=== PATIENT | male | born 1985 | race Caucasian/White ===

== ENCOUNTER 2017-03-07 12:30 | Inpatient (IN) | payer OTHER ==
[~2017-03-07] VITALS: Ht 167.6 cm; Wt 83.0 kg
[2017-03-07] VITALS (14 sets, daily range): BP systolic 115–131; BP diastolic 55–86; PULSE 66–84; RESP 15–23; TEMP 98.3; Ht 167.6 cm; Wt 83.0 kg
[2017-03-07] MEDS ORDERED: ONDANSETRON 4 MG INJ IV STA (14:20)
[2017-03-07] MEDS ORDERED: morphine 4 MG/ML VIAL IV STA (14:20)
[2017-03-07] MEDS ORDERED: SOD CHLORIDE 0.9% 1,000 ML IV STA (14:20)
[2017-03-07 14:47] LABS: ADD SCAN DIFF NO
--- NOTE | 2017-03-07 14:49 | ERD ---
ER Documentation Chief Complaint Date/Time DATE: 03/07/17 TIME: 14:45 Chief Complaint RUQ ABDOMINAL PAIN SINCE TUESDAY WITH N/V YESTERDAY HPI This is an otherwise healthy 31-year-old male who presents the emergency department for complaints of right-sided abdominal pain 1 day. Patient notes 2 episodes of vomiting which occurred yesterday. He denies any fever or chills. He currently rates his pain at a sharp 7 out of 10 nonradiating pain which is worse with movement and alleviated by rest. Patient denies any abdominal trauma. He denies diarrhea, dysuria, discharge, hematuria, coffee- ground emesis, bloody stool or nausea currently. ROS All systems reviewed and are negative except as per history of present illness. Allergies Allergies: Coded Allergies: No Known Allergy (Unverified , 03/07/17) Physical Exam Vitals Vital Signs Date Time Temp Pulse Resp B/P Pulse Ox O2 Delivery O2 Flow Rate FiO2 03/07/17 12:39 98.4 68 16 102/59 99 Physical Exam Const: Well-developed, well-nourished, in no acute distress Head: Atraumatic Neck: Full range of motion..~ No meningismus. Resp: Clear to auscultation bilaterally Cardio: Regular rate and rhythm, no murmurs Abd: Soft, diffuse right-sided tenderness to palpation with increased tenderness along the lower right abdomen. non distended. Normal bowel sounds. No peritoneal signs Skin: No petechiae or rashes Back: No midline or flank tenderness Ext: No cyanosis, or edema Neur: Awake and alert Psych: Normal Mood and Affect Result Diagram: 03/07/17 1435 03/07/17 1435 Results 24 hrs Laboratory Tests Test 03/07/17 14:35 White Blood Count 11.010^3/ul Red Blood Count 4.9610^6/ul Hemoglobin 14.5g/dl Hematocrit 43.8% Mean Corpuscular Volume 88.3fl Mean Corpuscular Hemoglobin 29.2pg Mean Corpuscular Hemoglobin Concent 33.1g/dl Red Cell Distribution Width 13.0% Platelet Count 04748^3/UL Mean Platelet Volume 10.2fl Neutrophils % 64.7% Lymphocytes % 22.9% Monocytes % 10.6% Eosinophils % 1.2% Basophils % 0.3% Nucleated Red Blood Cells % 0.0/100WBC Neutrophils # 7.110^3/ul Lymphocytes # 2.510^3/ul Monocytes # 1.210^3/ul Eosinophils # 0.110^3/ul Basophils # 0.010^3/ul Nucleated Red Blood Cells # 0.010^3/ul Urine Color YELLOW Urine Clarity CLEAR Urine pH 7.0 Urine Specific Lucas 1.014 Urine Ketones NEGATIVEmg/dL Urine Nitrite NEGATIVEmg/dL Urine Bilirubin NEGATIVEmg/dL Urine Urobilinogen NEGATIVEmg/dL Urine Leukocyte Esterase NEGATIVELeu/ul Urine Hemoglobin NEGATIVEmg/dL Urine Glucose NEGATIVEmg/dL Urine Total Protein NEGATIVEmg/dl Sodium Level 142mmol/L Potassium Level 4.1mmol/L Chloride Level 93mmol/L Carbon Dioxide Level 32mmol/L Anion Gap 21 Blood Urea Nitrogen 13mg/dl Creatinine 0.87mg/dl Glucose Level 88mg/dl Calcium Level 9.4mg/dl Total Bilirubin 0.5mg/dl Direct Bilirubin 0.00mg/dl Indirect Bilirubin 0.5mg/dl Aspartate Amino Transf (AST/SGOT) 20IU/L Alanine Aminotransferase (ALT/SGPT) 39IU/L Alkaline Phosphatase 62IU/L Total Protein 8.0g/dl Albumin 5.0g/dl Globulin 3.00g/dl Albumin/Globulin Ratio 1.66 Lipase 56U/L Current Medications Medications (Trade) Dose Ordered Sig/Jessy Route PRN Reason Start Time Stop Time Status Last Admin Dose Admin Sodium Chloride (NS) 1,000 ml @ 1,000 mls/hr Q1H STAT IV 03/07/17 14:20 03/07/17 15:19 DC 03/07/17 14:49 Morphine Sulfate (morphine) 4 mg ONCE STAT IV 03/07/17 14:20 03/07/17 14:22 DC 03/07/17 14:50 Ondansetron HCl (Zofran Inj) 4 mg ONCE STAT IV 03/07/17 14:20 03/07/17 14:22 DC 03/07/17 14:49 Procedures/MDM This is an otherwise healthy 31-year-old male who presents the emergency department for sudden onset right sided abdominal pain with associated vomiting 2 days. Patient well-appearing upon arrival. Vital signs reviewed. Patient afebrile, non-tachycardic, normotensive and non-hypoxic upon arrival. Abdominal exam with tenderness to palpation to the right lower quadrant. CBC showed no evidence of significantly elevated white blood cells, or severe anemia. CMP showed no evidence of electrolyte abnormalities, severe acidosis, alkalosis , renal failure, or liver disease. Lipase showed no evidence of acute pancreatitis. UA showed no evidence of acute infection or hematuria. Patient received a bolus of fluids as well as morphine and Zofran while in the emergency department. Differential diagnosis includes but not limited to acute appendicitis, testicular torsion, cholecystitis, small bowel obstruction, abdominal aortic aneurysm, mesenteric adenitis. Patient's case is transferred to Dr. Samuel Nobles pending CT scan Departure Diagnosis: Primary Impression: Abdominal pain YARELIS DOMINIQUE PA-C Mar 07, 2017 14:49
[2017-03-07 14:51] LABS: BASOPHILS % 0.3 % (0.0-2.0); EOSINOPHILS # 0.1 10^3/ul (0.0-0.5); EOSINOPHILS % 1.2 % (0.0-7.0); HEMATOCRIT 43.8 % (42.0-52.0); HEMOGLOBIN 14.5 g/dl (14.0-18.0); LYMPHOCYTES # 2.5 10^3/ul (0.8-2.9); LYMPHOCYTES % 22.9 % (15.0-51.0); MEAN CORPUSCULAR HEMOGLOBIN 29.2 pg (29.0-33.0); MEAN CORPUSCULAR HGB CONC 33.1 g/dl (32.0-37.0); MEAN CORPUSCULAR VOLUME 88.3 fl (82.0-101.0); MEAN PLATELET VOLUME 10.2 fl (7.4-10.4); MONOCYTE # 1.2 10^3/ul (0.3-0.9); MONOCYTES % 10.6 % (0.0-11.0); NEUTROPHIL # 7.1 10^3/ul (1.6-7.5); NEUTROPHILS % 64.7 % (39.0-77.0); PLATELET COUNT 264 10^3/UL (140-415); RED BLOOD COUNT 4.96 10^6/ul (4.70-6.10)
[2017-03-07 14:54] LABS: ADD UMIC NO; UR ASCORBIC ACID NEGATIVE (NEGATIVE); UR BILIRUBIN (Dip) NEGATIVE (NEGATIVE); UR BLOOD (Dip) NEGATIVE (NEGATIVE); UR CLARITY CLEAR (CLEAR); UR COLOR YELLOW (YELLOW); UR GLUCOSE (Dip) NEGATIVE (NEGATIVE); UR KETONES (Dip) NEGATIVE (NEGATIVE); UR LEUKOCYTE ESTERASE (Dip) NEGATIVE Leu/ul (NEGATIVE); UR NITRITE (Dip) NEGATIVE (NEGATIVE); UR SPECIFIC GRAVITY (Dip) 1.014 (1.003-1.030); UR TOTAL PROTEIN (Dip) NEGATIVE (NEGATIVE); UR UROBILINOGEN (Dip) NEGATIVE (NEGATIVE)
[2017-03-07 15:13] LABS: ALBUMIN/GLOBULIN RATIO 1.66; BILIRUBIN,INDIRECT 0.5 mg/dl (0-1.1); BILIRUBIN,TOTAL 0.5 mg/dl (0.2-1.3); CALCIUM 9.4 mg/dl (8.4-10.2); CREATININE 0.87 mg/dl (0.61-1.24); POTASSIUM 4.1 mmol/L (3.5-5.1)
--- NOTE | 2017-03-07 16:47 | RADRPT ---
PROCEDURE: CT Abdomen and Pelvis without contrast. CLINICAL INDICATION: Flank pain TECHNIQUE: CT scan of the abdomen and pelvis without contrast was performed on a multi-slice CT [facility] without intravenous contrast. Coronal and sagittal reformatted images were obtained from the axial source images. Images were reviewed on a high-resolution PACS workstation. One or more of the following does reduction techniques were used: Automated exposure control; adjustment of the mA an d/or kV according to patient size; use of the aorta of reconstruction technique. The total exam CTD I equals 12.07 mGy and the total exam DLP equals 789.96 mGy-cm. COMPARISON: None available. FINDINGS: There is mild bilateral posterior lower lobe subsegmental atelectasis.. Heart size is normal, and t here is no evidence of pericardial thickening or effusion. There is diffuse decreased attenuation of the hepatic parenchyma consistent with fatty infiltration. The liver is mildly enlarged. The liver, spleen, and pancreas are otherwise within normal limits. The gallbladder is normal. The adrenal glands are normal. The kidneys without renal calculus or hydronephrosis. The aorta is of normal caliber. There is no retroperitoneal lymph node enlargment. There is no evidence of large or small bowel obstruction. The appendix is moderate to markedly thic kened, there are moderate to marked periappendiceal inflammatory changes. There is small amounts of free fluid adjacent to the appendix. Which track into the pelvis. There is likely a small 2.3 x 1 .0 cm fluid collection just medial to the appendix likely representing a small abscess, compatible w ith perforation.. No other areas of inflammatory change identified. No enlarged pelvic sidewall lymph nodes are seen. The bladder is within normal limits. No free fl uid is identified. The inguinal regions are unremarkable. The bones are intact. IMPRESSION: 1. Of acute appendicitis with small fluid collection just medial to the appendix likely representin g tiny abscess compatible with perforation. 2. Enlarged, fatty liver. Call report: A call report was made to IJ Key at approximately 04:45 p.m. on 03/07/2017. RPTAT: [facility] .Vinay Booker MD, Date Time Electronically viewed and signed by .Vinay Booker MD, on 03/07/2017 16:46 .B/
[2017-03-07] MEDS ORDERED: PIPER-TAZO 3.375 GM IV (PMX) 100 ML IVPB ONE (17:00)
--- NOTE | 2017-03-07 17:33 | EN ---
Date/Time of Note Date/Time of Note DATE: 03/07/17 TIME: 17:30 ER Progress Note I have seen and evaluated the patient along with the PA and/or [employer] provider. I agree with the evaluation and plan of care. Please see their documentation for full ER course and evaluation. Initial presentation: Diffuse abdominal pain beginning Tuesday night which migrated to the right lower quadrant on Tuesday associated with one episode of vomiting and anorexia, right lower quadrant abdominal pain persisted till this morning which is when he came in for evaluation. On exam: Vital signs hemodynamically stable Focal tenderness the right upper quadrant with a positive Johnson sign with voluntary guarding. Assessment and plan: CT scan of the abdomen and pelvis revealing perforated appendicitis. Please refer to radiologist dictation for full report. Patient was treated here with morphine, Zofran, Zosyn. At this time he is pain- free. Accepting care team and consultations: I discussed the current laboratory data, diagnostic imaging and emergency care provided. Admitting team: Dr. Blanchard Admitting team indication: Insurance directed Consulting services: Dr. Pizano, general surgeon notified Diagnostic impression: Acute perforated appendicitis MARI CANDELARIA MD Mar 07, 2017 17:32
[2017-03-07] MEDS ORDERED: ACETAMINOPHEN 325 MG TAB PO PRN ×2 (18:00→21:00)
[2017-03-07] MEDS ORDERED: ONDANSETRON 4 MG INJ IV PRN ×3 (18:00→22:30)
[2017-03-07] MEDS ORDERED: HYDROCODONE/APAP (5/325) TAB PO PRN (18:00)
[2017-03-07] MEDS ORDERED: NACL 0.9% 3 ML SYG IV SCH (18:00)
--- NOTE | 2017-03-07 18:15 | HP ---
Date/Time of Note Date/Time of Note DATE: 03/07/17 TIME: 18:12 Assessment/Plan VTE Prophylaxis VTE Prophylaxis Intervention: SCD's Assessment/Plan Chief Complaint/Hosp Course 1. Abdominal pain. CT evidence of acute appendicitis with possible underlying perforation. We will keep the patient n.p.o. Will provide the patient with adequate pain control. Start the patient on empiric antibiotics. General surgery consult was already called by the ER physician. 2. Leukocytosis. Management as per #1. 3. Anion gap acidosis. Most probably secondary to #1. Continue IV hydration. Continue antibiotics. Plan: The patient will be admitted to inpatient medical surgical floor. The patient will be kept n.p.o.. The patient will be started on DVT prophylaxis and gastrointestinal prophylaxis. The patient will remain a full code. Activities will be as tolerated. The rest of the patient's management will be based on the clinical course and the results of diagnostic studies. Based on the patient's clinical presentation, he most probably requires at least 1 midnight's stay for further management and evaluation of his clinical presentation. The case and management of this patient was fully discussed with . Problems: HPI/ROS Admit Date/Time Admit Date/Time Hx of Present Illness Reason for admission: Abdominal pain. Lapel Padder Blindstitch 1. Christopher Pizano MD, General Surgery This is a 31-year-old male who denied any significant past medical history other than a history of prediabetes but not on any medication who came to the emergency room with chief complaint of right lower quadrant abdominal pain. The patient verbalized that he started having the pain since 03/05/2017. The pain was associated with a few episodes of nonbilious nonbloody vomiting. The patient denied any fevers or chills. The patient had poor appetite. He denied any diarrhea. The patient denied any radiation of the pain. He denied any dysuria. In the emergency room, the patient was noticed to have minimal leukocytosis. The patient was afebrile. The patient's a CT scan of the abdomen and pelvis showed evidence of appendicitis with possible underlying adjacent abscess compatible with perforation. The patient was treated with IV antibiotics and IV fluids in the emergency room. ROS Constitutional: no complaints Eyes: no complaints ENT: no complaints Respiratory: no complaints Cardiovascular: no complaints Gastrointestinal: nausea, pain, vomiting Genitourinary: no complaints Musculoskeletal: no complaints Skin: no complaints Neurologic: no complaints Endocrine: no complaints Lymphatic: no complaints Psychological: no complaints Immunologic: no complaints PMH/Family/Social Past Medical History Medical History: other (Prediabetes) Past Surgical History Past Surgical Hx: no surgical history Social History Works in construction. Alcohol Use: occasionally Smoking Status: Never smoker Drug Use: none Exam/Review of Systems Vital Signs Vitals Vital Signs Date Time Temp Pulse Resp B/P Pulse Ox O2 Delivery O2 Flow Rate FiO2 03/07/17 17:50 98.3 67 18 108/71 98 Room Air Exam Exam General: Adequately build 31 year-old male lying in bed in no apparent distress. HEENT: Normocephalic, atraumatic. Eyes: Anicteric sclerae, conjunctivae clear. ENT: Nasal septum midline, oral mucosa moist. Neck supple, no JVD noticed. Respiratory: Bilaterally clear breath sounds. No use of accessory muscles of respiration. No adventitious breath sounds. Cardiovascular: S1, S2 heard. No murmurs or gallops. Abdomen: Soft and nondistended. Bowel sounds positive in all 4 quadrants. Right lower quadrant tenderness and guarding. Genitourinary: Deferred. Extremities: No cyanosis, no clubbing, no edema. Peripheral pulses palpable. Neurologic: Cranial nerves II through XII grossly intact. The patient is awake, alert, and oriented. Skin: Normal skin turgor. No skin rashes. Labs Result Diagram: 03/07/17 1435 03/07/17 1435 Medications Medications Current Medications Ondansetron HCl (Zofran Inj) 4 mg Q6H PRN IV NAUSEA AND/OR VOMITING; Start 06/14 at 18:00 Acetaminophen (Tylenol Tab) 650 mg Q6H PRN PO PAIN LEVEL 1-3 OR FEVER; Start at 18:00 Acetaminophen/ Hydrocodone Bitart ([place] (5/325)) 1 tab Q6H PRN PO MODERATE PAIN LEVEL 4-6; Start 03/07/17 at 18:00 Famotidine 20 mg 20 mg Q12 IV ; Start 03/07/17 at 21:00 Potassium Chloride/Dextrose/ Sod Cl (D5-1/2ns + KCl 20 Meq) 1,000 ml @ 100 mls/ hr Q10H IV ; Start 03/07/17 at 18:30; Status UNV Procedures Procedures CT Scan of the Abdomen and Pelvis IMPRESSION: 1. Acute appendicitis with small fluid collection just medial to the appendix likely representing tiny abscess compatible with perforation. 2. Enlarged, fatty liver. COURTNEY PARHAM NP Mar 07, 2017 18:14
[2017-03-07] MEDS ORDERED: D5W-0.45 NACL + KCL 20 MEQ 1,000 ML IV SCH (18:30)
[2017-03-07] MEDS ORDERED: BUPIVACAINE 0.25%/EPI (SDV) 30 ML INJ ONE (20:41)
[2017-03-07] MEDS ORDERED: LIDOCAINE 1% (MPF) 30 ML INJ ONE (20:41)
[2017-03-07] MEDS ORDERED: LIDOCAINE 1% (MDV) 20 ML INJ ONE (20:55)
[2017-03-07] MEDS ORDERED: MIDAZOLAM 1 MG/ML 2 ML INJ ONE (20:55)
[2017-03-07] MEDS ORDERED: FENTAnyl 50 MCG/ML VIAL ONE (20:55)
[2017-03-07] MEDS ORDERED: IBUPROFEN 600 MG TAB PO PRN (21:00)
[2017-03-07] MEDS ORDERED: morphine 2 MG INJ IV PRN (21:00)
[2017-03-07] MEDS ORDERED: CEFAZOLIN 1 GM INJ ONE (21:05)
[2017-03-07] MEDS ORDERED: ONDANSETRON 4 MG INJ ONE (21:08)
[2017-03-07] MEDS ORDERED: DEXAMETHASONE 4 MG/ML 1 ML INJ ONE (21:08)
[2017-03-07] MEDS ORDERED: ROCURONIUM 50 MG INJ ONE (21:09)
[2017-03-07] MEDS ORDERED: ROPIVACAINE 0.2% 20 ML VIAL ONE (21:31)
[2017-03-07] MEDS ORDERED: SUGAMMADEX SODIUM 200 MG/2 ML VIAL IV ONE (21:48)
[2017-03-07] MEDS ORDERED: PIPER-TAZO 3.375 GM IV (PMX) 100 ML IVPB SCH (22:00)
[2017-03-07] MEDS ORDERED: DIPHENHYDRAMINE 50 MG INJ IV PRN (22:30)
[2017-03-07] MEDS ORDERED: HYDROmorphONE (0.2 MG/ML) 10ML SYG IV PRN ×2 (22:30)
[2017-03-07] MEDS ORDERED: MEPERIDINE 25 MG INJ IV PRN (22:30)
[2017-03-07] MEDS: PIPER-TAZO 3.375 GM IV (PMX) 100 ML IVPB SCH (23:22)
[2017-03-07] MEDS: FAMOTIDINE 20 MG INJ IV SCH (23:22)
[2017-03-07] MEDS: D5-NS + KCL 20 MEQ 1,000 ML IV SCH (23:22)
[2017-03-07] MEDS: OXYCODONE/ACETAMINOPHEN (5/325) TAB PO PRN (23:23)
[2017-03-08] VITALS: BP 111/57; PULSE 67; RESP 18
[2017-03-08 00:30] VITALS: BP 123/68; RESP 19
[2017-03-08 01:30] VITALS: BP 126/69; PULSE 69; RESP 18
[2017-03-08 05:16] LABS: ADD SCAN DIFF NO
[2017-03-08 05:20] LABS: BASOPHILS % 0.1 % (0.0-2.0); HEMATOCRIT 42.4 % (42.0-52.0); HEMOGLOBIN 13.9 g/dl (14.0-18.0); LYMPHOCYTES # 0.7 10^3/ul (0.8-2.9); LYMPHOCYTES % 5.5 % (15.0-51.0); MEAN CORPUSCULAR HGB CONC 32.8 g/dl (32.0-37.0); MEAN CORPUSCULAR VOLUME 88.5 fl (82.0-101.0); MEAN PLATELET VOLUME 10.3 fl (7.4-10.4); MONOCYTE # 0.6 10^3/ul (0.3-0.9); NEUTROPHIL # 10.6 10^3/ul (1.6-7.5); NEUTROPHILS % 88.8 % (39.0-77.0); PLATELET COUNT 231 10^3/UL (140-415); RED BLOOD COUNT 4.79 10^6/ul (4.70-6.10); RED CELL DISTRIBUTION WIDTH 12.8 % (11.5-14.5); WHITE BLOOD COUNT 11.9 10^3/ul (4.8-10.8)
[2017-03-08] MEDS: PIPER-TAZO 3.375 GM IV (PMX) 100 ML IVPB SCH ×4 (05:24→23:24)
[2017-03-08] MEDS: OXYCODONE/ACETAMINOPHEN (5/325) TAB PO PRN ×3 (05:24→15:56)
[2017-03-08 05:34] LABS: ALBUMIN 4.8 g/dl (3.3-4.9); ALBUMIN/GLOBULIN RATIO 1.84; BILIRUBIN,INDIRECT 0.3 mg/dl (0-1.1); BILIRUBIN,TOTAL 0.3 mg/dl (0.2-1.3); CALCIUM 9.2 mg/dl (8.4-10.2); CREATININE 0.91 mg/dl (0.61-1.24); POTASSIUM 4.8 mmol/L (3.5-5.1); TOTAL PROTEIN 7.4 g/dl (6.1-8.1)
[2017-03-08 05:35] VITALS: BP 110/65; PULSE 70; RESP 18
[2017-03-08 05:38] LABS: CHOL/HDL RATIO 3.1 RATIO; MAGNESIUM 1.9 mg/dl (1.7-2.5); PHOSPHORUS 4.2 mg/dl (2.5-4.9)
[2017-03-08 06:08] LABS: THYROID STIMULATING HORMONE 0.251 MIU/L (0.465-4.680)
[2017-03-08] MEDS: ENOXAPARIN 40 MG/0.4 ML SYG SC SCH (06:17)
[2017-03-08] MEDS: D5-NS + KCL 20 MEQ 1,000 ML IV SCH ×2 (06:40→16:43)
[2017-03-08 08:00] VITALS: BP 103/61; RESP 18
[2017-03-08] MEDS: FAMOTIDINE 20 MG INJ IV SCH ×2 (08:15→20:49)
--- NOTE | 2017-03-08 17:26 | PN ---
Date/Time of Note Date/Time of Note DATE: 03/08/17 TIME: 17:22 Assessment/Plan Lines/Catheters IV Catheter Type (from Nrsg): Peripheral IV Assessment/Plan Assessment/Plan Status post lap appendectomy Doing well postoperatively Okay for discharge tomorrow Subjective 24 Hr Interval Summary Postop day 1 from laparoscopic Patient has some left lower quadrant pain Tolerating liquids and voiding Exam/Review of Systems Vital Signs Vitals Vital Signs Date Time Temp Pulse Resp B/P Pulse Ox O2 Delivery O2 Flow Rate FiO2 03/08/17 08:00 98.0 63 18 103/61 97 03/08/17 05:35 Room Air 03/08/17 01:30 2.0 Intake and Output 03/07/17 03/07/17 03/08/17 15:00 23:00 07:00 Intake Total 800 ml 1100 ml Output Total 5 ml 500 ml Balance 795 ml 600 ml Exam Constitutional: alert, oriented, well developed Respiratory: clear to auscultation Gastrointestinal: soft Results Result Diagram: 03/08/17 0423 03/08/17 0423 LYRIC SERRANO MD Mar 08, 2017 17:25
--- NOTE | 2017-03-08 17:45 | PN ---
Date/Time of Note Date/Time of Note DATE: 03/08/17 TIME: 17:42 Assessment/Plan VTE Prophylaxis VTE Prophylaxis Intervention: LMWH Lines/Catheters IV Catheter Type (from Nrs): Peripheral IV Assessment/Plan Chief Complaint/Hosp Course 1. Acute appendicitis. Status post laparoscopic appendectomy. Continue pain control. Encourage incentive spirometry and frequent ambulation. 2. Leukocytosis. Management as per #1. 3. Anion gap acidosis. Most probably secondary to #1. Resolved. 4. Fluids, electrolytes, and nutrition. Regular diet as tolerated. 5. DVT prophylaxis. Subcutaneous Lovenox. 6. Gastrointestinal prophylaxis. Histamine 2 receptor blockers. 7. Plan. Continue pain control. Encourage incentive spirometry and frequent ambulation. Discharge the patient home once cleared by the surgeon. Case discussed with Dr. Blanchard. Problems: Subjective 24 Hr Interval Summary Free Text/Dictation Normal pain better controlled. Tolerating oral intake. Exam/Review of Systems Vital Signs Vitals Vital Signs Date Time Temp Pulse Resp B/P Pulse Ox O2 Delivery O2 Flow Rate FiO2 03/08/17 08:00 98.0 63 18 103/61 97 03/08/17 05:35 Room Air 03/08/17 01:30 2.0 Intake and Output 03/07/17 03/07/17 03/08/17 14:59 22:59 06:59 Intake Total 800 ml 1100 ml Output Total 5 ml 500 ml Balance 795 ml 600 ml Exam General: Adequately build 31 year-old male lying in bed in no apparent distress. HEENT: Normocephalic, atraumatic. Eyes: Anicteric sclerae, conjunctivae clear. ENT: Nasal septum midline, oral mucosa moist. Neck supple, no JVD noticed. Respiratory: Bilaterally clear breath sounds. No use of accessory muscles of respiration. No adventitious breath sounds. Cardiovascular: S1, S2 heard. No murmurs or gallops. Abdomen: Soft and nondistended. Bowel sounds positive in all 4 quadrants. Laparoscopic incision sites clean dry and intact with some mery-incisional tenderness. Genitourinary: Deferred. Extremities: No cyanosis, no clubbing, no edema. Peripheral pulses palpable. Neurologic: Cranial nerves II through XII grossly intact. The patient is awake, alert, and oriented. Skin: Normal skin turgor. No skin rashes. Results Result Diagram: 03/08/1742203/08/17422 Results 24 hrs Laboratory Tests Test 03/08/17 04:23 White Blood Count 11.9 H Red Blood Count 4.79 Hemoglobin 13.9 L Hematocrit 42.4 Mean Corpuscular Volume 88.5 Mean Corpuscular Hemoglobin 29.0 Mean Corpuscular Hemoglobin Concent 32.8 Red Cell Distribution Width 12.8 Platelet Count 231 Mean Platelet Volume 10.3 Neutrophils % 88.8 H Lymphocytes % 5.5 L Monocytes % 5.0 Eosinophils % 0.0 Basophils % 0.1 Nucleated Red Blood Cells % 0.0 Neutrophils # 10.6 H Lymphocytes # 0.7 L Monocytes # 0.6 Eosinophils # 0.0 Basophils # 0.0 Nucleated Red Blood Cells # 0.0 Sodium Level 138 Potassium Level 4.8 Chloride Level 99 Carbon Dioxide Level 28 Anion Gap 16 Blood Urea Nitrogen 10 Creatinine 0.91 Glucose Level 151 Hemoglobin A1c 5.6 Calcium Level 9.2 Phosphorus Level 4.2 Magnesium Level 1.9 Total Bilirubin 0.3 Direct Bilirubin 0.00 Indirect Bilirubin 0.3 Aspartate Amino Transf (AST/SGOT) 18 Alanine Aminotransferase (ALT/SGPT) 31 Alkaline Phosphatase 53 Total Protein 7.4 Albumin 4.8 Globulin 2.60 Albumin/Globulin Ratio 1.84 Triglycerides Level 44 Cholesterol Level 162 LDL Cholesterol, Calculated 101 HDL Cholesterol 52 Cholesterol/HDL Ratio 3.1 Thyroid Stimulating Hormone (TSH) 0.251 L Free Thyroxine 1.01 Medications Medications Current Medications Acetaminophen (Tylenol Tab) 650 mg Q6H PRN PO PAIN LEVEL 1-3 OR FEVER; Start at 18:00 Acetaminophen/ Hydrocodone Bitart ([place] (5/325)) 1 tab Q6H PRN PO MODERATE PAIN LEVEL 4-6; Start 03/07/17 at 18:00 Famotidine 20 mg 20 mg Q12 IV Last administered on 03/08/17 08:15; Admin Dose 20 MG; Start 03/07/17 at 21:00 Piperacillin Sod/ Tazobactam Sod (Zosyn 3.375gm/ 100 ml (Pmx)) 100 ml @ 200 mls /hr Q6 IVPB Last administered on 03/08/17 17:03; Admin Dose 200 MLS/HR; Start 03/08/17 at 00:00 Ondansetron HCl (Zofran Inj) 4 mg Q6H PRN IV NAUSEA AND/OR VOMITING; Start 06/14 at 21:00 Acetaminophen (Tylenol Tab) 650 mg Q6H PRN PO PAIN LEVEL 1-3 OR FEVER; Start at 21:00 Ibuprofen (Motrin) 600 mg Q6H PRN PO PAIN LEVEL 1-3; Start 03/07/17 at 21:00 Morphine Sulfate (morphine) 2 mg Q2H PRN IV PAIN LEVEL 8-10; Start 03/07/17 at 21:00 Oxycodone/ Acetaminophen 1 tab 1 tab Q6H PRN PO PAIN LEVEL 4-7 Last administered on 03/08/17 15:56; Admin Dose 1 TAB; Start 03/07/17 at 21:00 Potassium Chloride/Dextrose/ Sod Cl (D5-NS + KCl 20 Meq) 1,000 ml @ 100 mls/hr Q10H IV Last administered on 03/07/17 23:22; Admin Dose 100 MLS/HR; Start 06/14 at 21:00 Enoxaparin Sodium (Lovenox) 40 mg DAILY@07 SC Last administered on 03/08/17 06 :17; Admin Dose 40 MG; Start 03/08/17 at 07:00 COURTNEY PARHAM NP Mar 08, 2017 17:44 Morphine Sulfate (morphine) 2 mg Q2H PRN IV PAIN LEVEL 8-10; Start 03/07/17 at 21:00 Oxycodone/ Acetaminophen 1 tab 1 tab Q6H PRN PO PAIN LEVEL 4-7 Last administered on 03/08/17 15:56; Admin Dose 1 TAB; Start 03/07/17 at 21:00 Potassium Chloride/Dextrose/ Sod Cl (D5-NS + KCl 20 Meq) 1,000 ml @ 100 mls/hr Q10H IV Last administered on 03/07/17 23:22; Admin Dose 100 MLS/HR; Start 06/14 at 21:00 Enoxaparin Sodium (Lovenox) 40 mg DAILY@07 SC Last administered on 03/08/17 06 :17; Admin Dose 40 MG; Start 03/08/17 at 07:00 COURTNEY PARHAM NP Mar 08, 2017 17:44
[2017-03-08 20:02] VITALS: BP 100/54; PULSE 72; RESP 18
[2017-03-09] MEDS: D5-NS + KCL 20 MEQ 1,000 ML IV SCH ×2 (03:00→08:41)
[2017-03-09 05:20] LABS: ADD SCAN DIFF NO
[2017-03-09 05:24] LABS: BASOPHILS % 0.2 % (0.0-2.0); EOSINOPHILS # 0.1 10^3/ul (0.0-0.5); EOSINOPHILS % 0.9 % (0.0-7.0); HEMATOCRIT 39.3 % (42.0-52.0); HEMOGLOBIN 12.8 g/dl (14.0-18.0); LYMPHOCYTES # 2.4 10^3/ul (0.8-2.9); LYMPHOCYTES % 26.6 % (15.0-51.0); MEAN CORPUSCULAR HEMOGLOBIN 29.2 pg (29.0-33.0); MEAN CORPUSCULAR HGB CONC 32.6 g/dl (32.0-37.0); MEAN CORPUSCULAR VOLUME 89.5 fl (82.0-101.0); MEAN PLATELET VOLUME 10.3 fl (7.4-10.4); MONOCYTE # 1.1 10^3/ul (0.3-0.9); MONOCYTES % 11.9 % (0.0-11.0); NEUTROPHIL # 5.5 10^3/ul (1.6-7.5); PLATELET COUNT 243 10^3/UL (140-415); RED BLOOD COUNT 4.39 10^6/ul (4.70-6.10); RED CELL DISTRIBUTION WIDTH 12.6 % (11.5-14.5); WHITE BLOOD COUNT 9.1 10^3/ul (4.8-10.8)
[2017-03-09 05:45] LABS: PHOSPHORUS 3.7 mg/dl (2.5-4.9)
[2017-03-09 05:51] LABS: CREATININE 1.16 mg/dl (0.61-1.24)
[2017-03-09] MEDS: PIPER-TAZO 3.375 GM IV (PMX) 100 ML IVPB SCH (06:16)
[2017-03-09] MEDS: ENOXAPARIN 40 MG/0.4 ML SYG SC SCH (06:20)
[2017-03-09 07:29] VITALS: BP 99/59; RESP 20
--- NOTE | 2017-03-09 09:45 | PDOCDIS ---
Discharge Instructions DIAGNOSIS Discharge Diagnosis Acute appendicitis. Status post lap appendectomy. CONDITION Patient Condition: Stable HOME CARE INSTRUCTIONS: Diet Instructions: Regular FOLLOW UP/APPOINTMENTS Follow-up Plan Christopher Pizano MD Specialty: General Surgery Office Address [address] [place] [address] Office OTHER ORDERS: Other Orders: 1. Regular diet as tolerated. 2. Keep incisions clean and dry. May shower. Avoid tub baths and swimming for 2 weeks. Use mild soap and pat dry the incisions. 3. Take medications as needed for pain. 4. Call the surgeon or go to the nearest ER if you have severe abdominal pain despite pain medications. 5. Call the surgeon or go to the nearest ER if you notice any bleeding or secretions coming out of the incision sites. Also call the surgeon if you notice any blood in stool, if you have persistent fevers, or any other unusual signs or symptoms. 6. Follow-up with the surgeon Dr. Pizano in 7 days for incision check. 7. Avoid heavy lifting [more than 25 pounds] for 8 weeks. SCHOOL/WORK RELEASE May return to School/Work on: Mar 13, 2017 May return to School/Work with: With Restrictions (No weight bearing >25 lbs for 8 weeks.) COURTNEY PARHAM NP Mar 09, 2017 09:45
[2017-03-09] MEDS ORDERED: DOCU-144 PO (09:46)
[2017-03-09] MEDS ORDERED: CEPH500C PO (09:46)
[2017-03-09] MEDS ORDERED: HYDR-3498 PO (09:46)
--- NOTE | 2017-03-09 10:13 | DS ---
Date/Time of Note Date/Time of Note DATE: 03/09/17 TIME: 10:10 Discharge Summary Admission/Discharge Info Admit Date/Time Mar 08, 2017 at 09:38 Discharge Date/Time Discharge Diagnosis Acute appendicitis. Status post lap appendectomy. Patient Condition: Stable Consults 1. Christopher Pizano MD, General Surgery. Procedures Laparoscopic appendectomy on 03/07/2017. CT Scan of the Abdomen and Pelvis IMPRESSION: 1. Acute appendicitis with small fluid collection just medial to the appendix likely representing tiny abscess compatible with perforation. 2. Enlarged, fatty liver. Hx of Present Illness Reason for admission: Abdominal pain. [employer] 1. Christopher Pizano MD, General Surgery This is a 31-year-old male who denied any significant past medical history other than a history of prediabetes but not on any medication who came to the emergency room with chief complaint of right lower quadrant abdominal pain. The patient verbalized that he started having the pain since 03/05/2017. The pain was associated with a few episodes of nonbilious nonbloody vomiting. The patient denied any fevers or chills. The patient had poor appetite. He denied any diarrhea. The patient denied any radiation of the pain. He denied any dysuria. In the emergency room, the patient was noticed to have minimal leukocytosis. The patient was afebrile. The patient's a CT scan of the abdomen and pelvis showed evidence of appendicitis with possible underlying adjacent abscess compatible with perforation. The patient was treated with IV antibiotics and IV fluids in the emergency room. Hospital Course The patient was admitted to inpatient medical surgical floor. The patient was maintained on empiric antibiotics. The patient was provided with adequate pain control. The patient underwent a laparoscopic appendectomy on 03/07/2017 without any complications. The patient was resumed on a clear liquid diet and the patient's diet was advanced as tolerated to regular consistency diet without any significant gastrointestinal symptoms. The patient was advised on frequent ambulation and frequent use of incentive spirometry. The patient verbalized that he has prediabetes. However, his hemoglobin A1c was 5.6. The patient had a stable hospital course. The patient was cleared by general surgery to be discharged home. The patient's incisional pain is well controlled with oral analgesics. Discharge Instructions 1. Regular diet as tolerated. 2. Keep incisions clean and dry. May shower. Avoid tub baths and swimming for 2 weeks. Use mild soap and pat dry the incisions. 3. Take medications as needed for pain. 4. Call the surgeon or go to the nearest ER if you have severe abdominal pain despite pain medications. 5. Call the surgeon or go to the nearest ER if you notice any bleeding or secretions coming out of the incision sites. Also call the surgeon if you notice any blood in stool, if you have persistent fevers, or any other unusual signs or symptoms. 6. Follow-up with the surgeon Dr. Pizano in 7 days for incision check. 7. Avoid heavy lifting [more than 25 pounds] for 8 weeks. The patient verbalized understanding of his discharge instructions. The case and management of this patient was fully discussed with . Home Meds Active Scripts Cephalexin* (Cephalexin*) 500 Mg Capsule, 500 MG PO Q8 for 7 Days, #21 CAP Prov:COURTNEY PARHAM [employer] 03/09/17 Docusate Sodium* (Colace*) 100 Mg Capsule, 100 MG PO BID, #20 CAP Prov:COURTNEY PARHAM [employer] 03/09/17 Hydrocodone Bit-Acetaminophen (Hydrocodone Bit-APAP) 5-325MG Tablet, 1 TAB PO Q6H Y for MODERATE PAIN LEVEL 4-6, #30 TAB Prov:COURTNEY PARHAM NP 03/09/17 Follow-up Plan Follow-up with Dr. Pizano in 7 days for incision check. Primary Care Provider None. Time spent on discharge: > 30 minutes Pending Labs Laboratory Tests Test 03/09/17 04:30 White Blood Count 9.110^3/ul (4.8-10.8) Red Blood Count 4.3910^6/ul (4.70-6.10) Hemoglobin 12.8g/dl (14.0-18.0) Hematocrit 39.3% (42.0-52.0) Mean Corpuscular Volume 89.5fl (82.0-101.0) Mean Corpuscular Hemoglobin 29.2pg (29.0-33.0) Mean Corpuscular Hemoglobin Concent 32.6g/dl (32.0-37.0) Red Cell Distribution Width 12.6% (11.5-14.5) Platelet Count 54324^3/UL (140-415) Mean Platelet Volume 10.3fl (7.4-10.4) Neutrophils % 60.0% (39.0-77.0) Lymphocytes % 26.6% (15.0-51.0) Monocytes % 11.9% (0.0-11.0) Eosinophils % 0.9% (0.0-7.0) Basophils % 0.2% (0.0-2.0) Nucleated Red Blood Cells % 0.0/100WBC (0.0-0.0) Neutrophils # 5.510^3/ul (1.6-7.5) Lymphocytes # 2.410^3/ul (0.8-2.9) Monocytes # 1.110^3/ul (0.3-0.9) Eosinophils # 0.110^3/ul (0.0-0.5) Basophils # 0.010^3/ul (0.0-0.1) Nucleated Red Blood Cells # 0.010^3/ul (0.0-0.0) Sodium Level 132mmol/L (135-144) Potassium Level 4.0mmol/L (3.5-5.1) Chloride Level 100mmol/L (97-110) Carbon Dioxide Level 30mmol/L (21-31) Anion Gap 6 (8-16) Blood Urea Nitrogen 15mg/dl (7-20) Creatinine 1.16mg/dl (0.61-1.24) Glucose Level 96mg/dl (70-220) Calcium Level 9.0mg/dl (8.4-10.2) Phosphorus Level 3.7mg/dl (2.5-4.9) Magnesium Level 2.0mg/dl (1.7-2.5) COURTNEY PARHAM NP Mar 09, 2017 10:13
[2017-03-09] MEDS: FAMOTIDINE 20 MG INJ IV SCH (10:54)
[2017-03-09] MEDS ORDERED: FAMOTIDINE 20 MG TAB PO SCH (21:00)
== END 2017-03-09 14:32 | disposition home or self-care (01) | DRG 339 ==
LOC: FTE 12:30 → MS1 19:35 → SDS 19:35 → MS1 22:50 → SDS 03-08 09:37 → MS1 03-08 09:38
PROVIDERS: ADMIT Surgery; ATTEND Surgery
PROC: 0DTJ4ZZ Resection of Appendix, Percutaneous Endoscopic Approach (ICD-10-PCS; principal; 2017-03-08)
DX: K35.3 Acute appendicitis with localized peritonitis (principal); E87.2 Acidosis
CPT/HCPCS: 36415; 74176; 80048; 80053; 80061; 81003; 83036; 83690; 83735; 84100; 84439; 84443; 85025; 88304; 96374; 96375; J0690; J1100; J1170; J1650; J2250; J2270; J2405; J2543; J2795; J3010; J3480; J7030

== ENCOUNTER 2018-10-27 13:54 | Emergency (ER) | payer OTHER ==
[~2018-10-27] VITALS: Ht 167.6 cm; Wt 84.0 kg
[~2018-10-27 13:54] MED LIST: CEPH500C PO; DOCU-144 PO; HYDR-3601 PO
[2018-10-27 13:58] VITALS: BP 142/85; PULSE 98; RESP 20; Ht 167.6 cm; Wt 84.0 kg
[2018-10-27] MEDS ORDERED: FAMO-96 PO (15:48)
--- NOTE | 2018-10-27 15:51 | ERD ---
ER Documentation Chief Complaint Chief Complaint pt bib self with c/o epigastric pain after eating 20 mins ago , EKG done HPI 33-year-old male presents with some chest pain started after eating earlier today. He does admit to eating large portions. He had a brief episode of pressure-like chest pain. He checked his pulse which went to 140. His symptoms resolved shortly thereafter and his pulse returned to normal. Is concerned about his heart because he was told he has high cholesterol. Denies tobacco, family history, hypertension. He was told he had prediabetes in the past. ROS All systems reviewed and are negative except as per history of present illness. Medications Home Meds Active Scripts Famotidine* (Pepcid*) 20 Mg Tablet, 20 MG PO BID for 7 Days, #14 TAB Prov:DARLEEN JARRELL MD 10/27/18 Cephalexin* (Cephalexin*) 500 Mg Capsule, 500 MG PO Q8 for 7 Days, #21 CAP Prov:COURTNEY PARHAM NP 03/09/17 Docusate Sodium* (Colace*) 100 Mg Capsule, 100 MG PO BID, #20 CAP Prov:COURTNEY PARHAM NP 03/09/17 Hydrocodone Bit-Acetaminophen (Hydrocodone Bit-APAP) 5-325MG Tablet, 1 TAB PO Q6H PRN for MODERATE PAIN LEVEL 4-6, #30 TAB Prov:COURTNEY PARHAM NP 03/09/17 Allergies Allergies: Coded Allergies: No Known Allergy (Unverified , 03/07/17) PMhx/Soc Medical and Surgical Hx: pt denies Medical Hx History of Surgery: Yes (appendectomy) Anesthesia Reaction: No Hx Neurological Disorder: No Hx Respiratory Disorders: No Hx Cardiac Disorders: No Hx Psychiatric Problems: No Hx Miscellaneous Medical Probl: No Hx Alcohol Use: Yes (social) Hx Substance Use: No Hx Tobacco Use: No Smoking Status: Never smoker FmHx Family History: No diabetes, No coronary disease, No other Physical Exam Vitals Vital Signs Date Temp Pulse Resp B/P (MAP) Pulse Ox O2 O2 Flow FiO2 Time Delivery Rate 10/27/18 97.7 98 20 142/85 99 13:58 (104) Physical Exam Const: No acute distress Head: Atraumatic Eyes: Normal Conjunctiva ENT: Normal External Ears, Nose and Mouth. Neck: Full range of motion. No meningismus. Resp: Clear to auscultation bilaterally Cardio: Regular rate and rhythm, no murmurs Abd: Soft, non tender, non distended. Normal bowel sounds Skin: No petechiae or rashes Back: No midline or flank tenderness Ext: No cyanosis, or edema Neur: Awake and alert Psych: Normal Mood and Affect Result Diagram: 10/27/18 1451 10/27/18 1451 Results 24 hrs Laboratory Tests Test 10/27/18 14:51 White Blood Count 4.5 10^3/ul Red Blood Count 4.72 10^6/ul Hemoglobin 14.1 g/dl Hematocrit 41.9 % Mean Corpuscular Volume 88.8 fl Mean Corpuscular Hemoglobin 29.9 pg Mean Corpuscular Hemoglobin Concent 33.7 g/dl Red Cell Distribution Width 12.6 % Platelet Count 264 10^3/UL Mean Platelet Volume 9.9 fl Immature Granulocytes % 0.200 % Neutrophils % 56.8 % Lymphocytes % 32.0 % Monocytes % 7.5 % Eosinophils % 3.1 % Basophils % 0.4 % Nucleated Red Blood Cells % 0.0 /100WBC Immature Granulocytes # 0.010 10^3/ul Neutrophils # 2.6 10^3/ul Lymphocytes # 1.5 10^3/ul Monocytes # 0.3 10^3/ul Eosinophils # 0.1 10^3/ul Basophils # 0.0 10^3/ul Nucleated Red Blood Cells # 0.0 10^3/ul Sodium Level 141 mmol/L Potassium Level 3.9 mmol/L Chloride Level 103 mmol/L Carbon Dioxide Level 30 mmol/L Anion Gap 8 Blood Urea Nitrogen 17 mg/dl Creatinine 0.86 mg/dl Est Glomerular Filtrat Rate mL/min > 60 mL/min Glucose Level 105 mg/dl Calcium Level 9.4 mg/dl Troponin I < 0.012 ng/ml Procedures/[facility] EKG: Rate/Rhythm: Normal Sinus Rhythm. Rate equals 91. QRS, ST, T-waves: No changes consistent w/ acute ischemia Impression: No evidence of ischemia or arrhythmia. Impression-normal EKG She presents with chest pain after eating today. Heart score is 0-1. Patient describes symptoms consistent with GERD. He will be discharged home with Pepcid, further observation and primary care follow-up and return precautions. The patient was stable with no new complaints during the ER course. Clinically, there is no current evidence to suggest meningitis, sepsis, acute abdomen, pneumonia, stroke, acute coronary syndrome, pulmonary embolism, aortic dissection or any other emergent condition appearing to require further evaluation or hospitalization. Patient counseled regarding my diagnostic impression and care plan. Prior to discharge all questions answered. Pt agrees with treatment plan and understands strict return precautions. Pt is instructed to follow up with primary care provider within 24-48 hours. Precautionary instructions provided including instructions to return to the ER if not improving or for any worsening or changing symptoms or concerns. Departure Diagnosis: Primary Impression: Epigastric pain Condition: Stable Patient Instructions: Gerd (Adult) Referrals: DOCTOR,NOT ON STAFF (PCP) Additional Instructions: Emanations normal today. Suspect acid reflux or GERD. Recheck with primary doctor. Avoid spicy foods, alcohol, ibuprofen or Naprosyn.. Recheck for new or worsening symptoms otherwise. DARLEEN JARRELL MD Oct 27, 2018 15:51
== END 2018-10-27 16:00 | disposition home or self-care (01) ==
LOC: FTE 13:54
DX: R10.13 Epigastric pain (principal)
CPT/HCPCS: 80048; 84484; 85025; Z7502; 93005